=== PATIENT | male | born 1965 | race Caucasian/White ===

== ENCOUNTER 2016-07-25 10:34 | Observation (INO) | payer OTHER ==
[~2016-07-25] VITALS: Ht 185.4 cm; Wt 140.0 kg
[2016-07-25 11:32] LABS: EOSINOPHIL (%) 3.2 % (0-5); EOSINOPHIL COUNT 0.2 K/uL (0-0.3); HEMATOCRIT 45.9 % (38.0-50.0); IMMATURE GRANULOCYTE (%) 0.4 % (0.0-0.7); INSTRUMENT ABS NEUTROPHIL CT 4.6 K/uL; LYMPHOCYTE COUNT 1.9 K/uL (1.0-2.8); MCH 28.8 PG (29.0-34.0); MONOCYTE (%) 8.8 % (3-12); MONOCYTE COUNT 0.7 K/uL (0-0.8); NEUTROPHIL (%) 61.4 % (45-76); NEUTROPHIL COUNT 4.6 K/uL (1.8-6.4); PLATELET COUNT 295 K/uL (156-360); RBC DIS.WIDTH-CV 13.4 % (11.8-14.6); RBC DIS.WIDTH-SD 43.9 % (39-53); WHITE BLOOD COUNT 7.5 K/uL (4.1-10.2)
[2016-07-25 11:42] LABS: CHLORIDE 107 mEq/L (99-109); INTER. NORMALIZED RATIO 1.1; POTASSIUM 4.3 mEq/L (3.7-5.4); PROTHROMBIN TIME 10.8 (9.2-11.2); PTT 26.5 (25-32); SODIUM 139 mEq/L (136-147)
[2016-07-25 11:43] LABS: GLUCOSE 114 mg/dL (70-99)
[2016-07-25 11:45] LABS: ANION GAP 10 MEQ/L (2-14)
[2016-07-25 11:47] LABS: GFR ESTIMATE (CALCULATED) > 59 mL/min/
[2016-07-25 11:48] LABS: UREA NITROGEN (BUN) 13 mg/dL (9-23)
[2016-07-25 11:53] LABS: TROP-I INTERPRETATION NEGATIVE; TROPONIN-I < 0.01 ng/mL (0.0-0.30)
[2016-07-25] MEDS ORDERED: COLESTIPOL HCL1 GM PO (14:10)
[2016-07-25] MEDS ORDERED: HYDROCHLOROTHIA25 MG PO (14:10)
[2016-07-25] MEDS ORDERED: NEXIUM 24HR20 MG PO (14:10)
[2016-07-25 14:58] VITALS: BP 130/76
[2016-07-25 18:48] LABS: TROP-I INTERPRETATION NEGATIVE; TROPONIN-I 0.02 ng/mL (0.0-0.30)
[2016-07-25 19:26] VITALS: BP 137/68
[2016-07-26] VITALS: BP 109/59
[2016-07-26 01:02] LABS: TROP-I INTERPRETATION NEGATIVE; TROPONIN-I < 0.01 ng/mL (0.0-0.30)
[2016-07-26 05:00] VITALS: BP 136/83
[2016-07-26 05:47] LABS: TROP-I INTERPRETATION NEGATIVE; TROPONIN-I 0.02 ng/mL (0.0-0.30)
[2016-07-26 08:10] VITALS: BP 113/73
[2016-07-26] MEDS ORDERED: LO-DOSE ASPIRIN81 M2 PO (10:48)
== END 2016-07-26 13:14 | disposition home or self-care (01) ==
LOC: EME 10:34 → 5WEST 13:08 → EDOF 13:08 → 5WEST 14:53
PROVIDERS: Emergency Medicine; Internal Medicine; Nurse Practitioner Adult Health
DX: R07.89 Other chest pain (principal); R06.02 Shortness of breath; R42 Dizziness and giddiness; I10 Essential (primary) hypertension; I25.10 Atherosclerotic heart disease of native coronary artery without angina pectoris; I25.2 Old myocardial infarction; Z95.810 Presence of automatic (implantable) cardiac defibrillator; J45.909 Unspecified asthma, uncomplicated; E66.01 Morbid (severe) obesity due to excess calories; Z68.42 Body mass index [BMI] 45.0-49.9, adult; M19.90 Unspecified osteoarthritis, unspecified site; F17.210 Nicotine dependence, cigarettes, uncomplicated; I51.7 Cardiomegaly; Z86.74 Personal history of sudden cardiac arrest
CPT/HCPCS: 71010; 80048; 83880; 84484; 85025; 85610; 85730; 93005; 93306; 99281; 99284; G0378; J1650

== ENCOUNTER 2016-09-05 18:09 | Observation (INO) | payer OTHER ==
[~2016-09-05] VITALS: Ht 185.4 cm; Wt 171.6 kg
[~2016-09-05 18:09] MED LIST: COLESTIPOL HCL1 GM PO; HYDROCHLOROTHIA25 MG PO; LO-DOSE ASPIRIN81 M2 PO; NEXIUM 24HR20 MG PO
[2016-09-05 19:01] LABS: MCH 28.5 PG (29.0-34.0); MCHC 31.8 G/DL (30.0-36.0); MCV 89.6 FL (86-99); MEAN PLAT.VOLUME 10.1 uM^3 (9.0-12.4); PLATELET COUNT 304 K/uL (156-360); RBC DIS.WIDTH-CV 14.2 % (11.8-14.6); RBC DIS.WIDTH-SD 46.2 % (39-53); RED BLOOD COUNT 5.02 M/uL (4.00-5.50); WHITE BLOOD COUNT 11.4 K/uL (4.1-10.2)
[2016-09-05 19:26] LABS: TROP-I INTERPRETATION NEGATIVE; TROPONIN-I < 0.01 ng/mL (0.0-0.30)
[2016-09-05 19:27] LABS: CHLORIDE 105 mEq/L (99-109); POTASSIUM 4.1 mEq/L (3.7-5.4); SODIUM 140 mEq/L (136-147)
[2016-09-05 19:29] LABS: GLUCOSE 107 mg/dL (70-99)
[2016-09-05 19:30] LABS: ANION GAP 11 MEQ/L (2-14)
[2016-09-05 19:31] LABS: TOTAL BILIRUBIN 0.2 mg/dL (0.0-1.0)
[2016-09-05 19:33] LABS: ALKALINE PHOSPHATASE 124 IU/L (3-129); GFR ESTIMATE (CALCULATED) > 59 mL/min/
[2016-09-05 19:34] LABS: UREA NITROGEN (BUN) 16 mg/dL (9-23)
[2016-09-05 19:36] LABS: CREATINE KINASE 122 IU/L (1-294); TOTAL CK 122 IU/L (1-294)
[2016-09-05 19:42] LABS: CK-MB 1.3 ng/mL (0.0-4.9)
[2016-09-05] MEDS ORDERED: CHILD ASPIRIN81 M1 PO (22:43)
[2016-09-05] MEDS ORDERED: LOPRESSOR50 MG PO (22:45)
[2016-09-05] MEDS ORDERED: VITAMIN D31000 UNIT PO (22:45)
[2016-09-05 23:15] LABS: TROP-I INTERPRETATION NEGATIVE; TROPONIN-I < 0.01 ng/mL (0.0-0.30)
[2016-09-05 23:25] VITALS: BP 129/67
[2016-09-06 04:19] VITALS: BP 113/54
[2016-09-06 05:30] LABS: HEMATOCRIT 40.9 % (38.0-50.0); MCH 29.2 PG (29.0-34.0); MCHC 32.5 G/DL (30.0-36.0); MCV 89.9 FL (86-99); MEAN PLAT.VOLUME 10.3 uM^3 (9.0-12.4); PLATELET COUNT 275 K/uL (156-360); RBC DIS.WIDTH-CV 14.5 % (11.8-14.6); RBC DIS.WIDTH-SD 47.2 % (39-53); RED BLOOD COUNT 4.55 M/uL (4.00-5.50); WHITE BLOOD COUNT 9.2 K/uL (4.1-10.2)
[2016-09-06 05:45] LABS: TROP-I INTERPRETATION NEGATIVE; TROPONIN-I 0.02 ng/mL (0.0-0.30)
[2016-09-06 05:51] LABS: ANION GAP 9 MEQ/L (2-14); CHLORIDE 105 MEQ/L (99-109); GFR ESTIMATE (CALCULATED) > 59 mL/min/; GLUCOSE 101 mg/dL (70-99); POTASSIUM 3.9 MEQ/L (3.7-5.4); SAMPLE HEMOLYSIS CHECK 0; SAMPLE ICTERIC CHECK 0; SAMPLE LIPEMIA CHECK 0; SODIUM 139 MEQ/L (136-147); UREA NITROGEN (BUN) 15 mg/dL (9-23)
[2016-09-06 08:08] VITALS: BP 135/75
[2016-09-06 12:35] VITALS: BP 146/87
[2016-09-06] MEDS ORDERED: PRAVASTATIN SOD80 MG PO (12:39)
== END 2016-09-06 13:36 | disposition home or self-care (01) ==
LOC: EME 18:09 → EDOF 21:55 → 5WEST 21:55 → ENRESERV 21:56 → 5WEST 23:16 → ENPENDDIS 09-06 → 5WEST 09-06 13:36
PROVIDERS: Emergency Medicine; Hospitalist
DX: R07.9 Chest pain, unspecified (principal); R06.02 Shortness of breath; I10 Essential (primary) hypertension; I25.2 Old myocardial infarction; Z86.74 Personal history of sudden cardiac arrest; Z95.810 Presence of automatic (implantable) cardiac defibrillator; K21.9 Gastro-esophageal reflux disease without esophagitis; E66.9 Obesity, unspecified; Z82.49 Family history of ischemic heart disease and other diseases of the circulatory system; Z79.82 Long term (current) use of aspirin; Z88.5 Allergy status to narcotic agent
CPT/HCPCS: 71020; 80048; 80053; 82550; 82553; 83880; 84484; 85027; 93005; G0378